=== PATIENT | male | born 1950 | race Caucasian/White ===

== ENCOUNTER 2024-02-08 14:42 | Inpatient (IN) ==
[2024-02-08] MEDS: 0.9 % SODIUM CHLORIDE 1,000 ML IV ONE (16:15)
[2024-02-08] MEDS: morphine 2 MG/ML VIAL IV ONE (16:40)
[2024-02-08] MEDS: CIPROFLOXACIN 400 MG/200 ML BAG IV ONE (16:41)
[2024-02-08 16:44] LABS: Basophils # (Auto) 0.04 K/mcL (0.00-0.30); Basophils % (Auto) 0.4 % (0.0-2.0); Eosinophils # (Auto) 0.06 K/mcL (0.00-0.70); Eosinophils % (Auto) 0.7 % (0.0-7.0); Hematocrit 36.8 % (40.1-51.0); Hemoglobin 11.9 g/dL (13.7-17.5); Lymphocytes # (Auto) 1.02 K/mcL (1.50-4.80); Lymphocytes % (Auto) 11.3 % (15.5-49.0); Mean Cell Volume 96.8 fL (80.0-100.0); Mean Corpuscular HGB Conc 32.3 g/dL (31.0-36.0); Mean Platelet Volume 10.9 fL (8.8-12.5); Monocytes # (Auto) 1.03 K/mcL (0.10-0.90); Monocytes % (Auto) 11.4 % (1.0-12.0); Neutrophils % (Auto) 76.1 % (38.0-78.0); Platelet Count 334 K/mcL (140-440); Red Cell Distribution Width 12.3 % (11.5-14.5); WBC 9.1 K/mcL (4.5-11.0)
[2024-02-08] MEDS: metroNIDAZOLE 500 MG/100 ML BAG IV ONE (17:11)
[2024-02-08 17:14] LABS: ALT/SGPT 111 U/L (<40); AST/SGOT 18 U/L (<40); Albumin 3.3 gm/dL (3.2-5.2); Alkaline Phosphatase 169 U/L (39-117); Bilirubin,Total 0.4 mg/dL (0.1-1.0); Blood Urea Nitrogen 12 mg/dL (8-23); Calcium 8.8 mg/dL (8.6-10.4); Carbon Dioxide 27 mmol/L (22-30); Chloride 99 mmol/L (96-108); Globulin 3.3 gm/dL (2.2-3.7); Glomerular Filtration Rate 94; Glucose 127 mg/dL (70-105)
[2024-02-08] MEDS ORDERED: IOPAMIDOL 100 ML BOTTLE IV ONE (19:46)
[2024-02-08] MEDS: PIPERACILLIN SODIUM/TAZOBACTAM 3.375 GM in 0.9 % SODIUM CHLORIDE 50 ML IV ONE (21:08)
[2024-02-08] MEDS: DEXTROSE 5%-LR 1,000 ML IV SCH (21:08)
[2024-02-08] MEDS: HYDROmorphone 0.5 MG/0.5 ML SYRINGE IV PRN (21:42)
[2024-02-08] MEDS: PIPERACILLIN SODIUM/TAZOBACTAM 3.375 GM in 0.9 % SODIUM CHLORIDE 100 ML IV SCH (22:14)
[2024-02-09] MEDS: PIPERACILLIN SODIUM/TAZOBACTAM 3.375 GM in 0.9 % SODIUM CHLORIDE 100 ML IV SCH (00:03)
[2024-02-09 00:43] LABS: Appearance,Urine Clear (Clear); Bilirubin,Urine Negative (Negative); Color,Urine Yellow; Culture Indicated,Urine No; Glucose,Urine (UA) Negative (Negative); Ketones,Urine Negative (Negative); Leukocyte Esterase,Urine Negative /uL (Negative); Nitrate,Urine Negative (Negative); Protein,Urine Negative (Negative); Specific Gravity,Urine 1.015 (1.000-1.035); Urine Blood Negative ery/mcL (Negative); Urobilinogen,Urine Normal
[2024-02-09 06:58] LABS: Hematocrit 40.5 % (40.1-51.0); Hemoglobin 11.9 g/dL (13.7-17.5); Mean Corpuscular HGB Conc 29.4 g/dL (31.0-36.0); Mean Platelet Volume 10.5 fL (8.8-12.5); Platelet Count 310 K/mcL (140-440); RBC 3.82 M/mcL (4.63-6.08); Red Cell Distribution Width 12.7 % (11.5-14.5); WBC 6.9 K/mcL (4.5-11.0)
[2024-02-09 07:09] LABS: ALT/SGPT 120 U/L (<40); AST/SGOT 59 U/L (<40); Alkaline Phosphatase 252 U/L (39-117); Bilirubin,Total 0.5 mg/dL (0.1-1.0); Blood Urea Nitrogen 8 mg/dL (8-23); Calcium 8.7 mg/dL (8.6-10.4); Carbon Dioxide 25 mmol/L (22-30); Chloride 104 mmol/L (96-108); Globulin 3.1 gm/dL (2.2-3.7); Glomerular Filtration Rate 89; Glucose 108 mg/dL (70-105)
[2024-02-09] MEDS: LEVOTHYROXINE 25 MCG TABLET PO SCH (09:08)
[2024-02-09] MEDS: OMEPRAZOLE 20 MG CAPSULE PO SCH (09:08)
[2024-02-09] MEDS: ONDANSETRON 4 MG/2 ML VIAL IV PRN (21:17)
[2024-02-10 06:29] LABS: Hematocrit 31.8 % (40.1-51.0); Hemoglobin 9.9 g/dL (13.7-17.5); Mean Cell Volume 100.3 fL (80.0-100.0); Mean Corpuscular HGB Conc 31.1 g/dL (31.0-36.0); Mean Platelet Volume 10.3 fL (8.8-12.5); Platelet Count 345 K/mcL (140-440); RBC 3.17 M/mcL (4.63-6.08); Red Cell Distribution Width 12.7 % (11.5-14.5); WBC 6.5 K/mcL (4.5-11.0)
[2024-02-10 06:56] LABS: ALT/SGPT 106 U/L (<40); AST/SGOT 55 U/L (<40); Albumin 2.9 gm/dL (3.2-5.2); Alkaline Phosphatase 243 U/L (39-117); Bilirubin,Total 0.5 mg/dL (0.1-1.0); Blood Urea Nitrogen 6 mg/dL (8-23); Calcium 8.8 mg/dL (8.6-10.4); Carbon Dioxide 27 mmol/L (22-30); Chloride 102 mmol/L (96-108); Globulin 2.9 gm/dL (2.2-3.7); Glomerular Filtration Rate 89; Glucose 118 mg/dL (70-105)
[2024-02-11 08:05] LABS: Hematocrit 33.2 % (40.1-51.0); Hemoglobin 10.5 g/dL (13.7-17.5); Mean Cell Volume 98.5 fL (80.0-100.0); Mean Corpuscular HGB Conc 31.6 g/dL (31.0-36.0); Mean Platelet Volume 10.2 fL (8.8-12.5); Platelet Count 393 K/mcL (140-440); RBC 3.37 M/mcL (4.63-6.08); Red Cell Distribution Width 12.2 % (11.5-14.5); WBC 6.4 K/mcL (4.5-11.0)
[2024-02-11 08:23] LABS: ALT/SGPT 84 U/L (<40); AST/SGOT 31 U/L (<40); Albumin/Globulin Ratio 1.1 (1.0-2.3); Alkaline Phosphatase 222 U/L (39-117); Bilirubin,Total 0.4 mg/dL (0.1-1.0); Blood Urea Nitrogen 6 mg/dL (8-23); Calcium 8.7 mg/dL (8.6-10.4); Carbon Dioxide 27 mmol/L (22-30); Chloride 101 mmol/L (96-108); Globulin 2.8 gm/dL (2.2-3.7); Glomerular Filtration Rate 89; Glucose 105 mg/dL (70-105)
[2024-02-12] MEDS: DEXTROSE 5%-LR 1,000 ML IV SCH (01:08)
[2024-02-12 06:30] LABS: Hematocrit 32.3 % (40.1-51.0); Hemoglobin 10.3 g/dL (13.7-17.5); Mean Cell Volume 97.3 fL (80.0-100.0); Mean Corpuscular HGB Conc 31.9 g/dL (31.0-36.0); Mean Platelet Volume 10.3 fL (8.8-12.5); Platelet Count 412 K/mcL (140-440); RBC 3.32 M/mcL (4.63-6.08); Red Cell Distribution Width 12.1 % (11.5-14.5); WBC 5.9 K/mcL (4.5-11.0)
[2024-02-12 06:57] LABS: ALT/SGPT 61 U/L (<40); AST/SGOT 19 U/L (<40); Albumin 2.9 gm/dL (3.2-5.2); Albumin/Globulin Ratio 1.1 (1.0-2.3); Alkaline Phosphatase 192 U/L (39-117); Bilirubin,Total 0.3 mg/dL (0.1-1.0); Blood Urea Nitrogen 4 mg/dL (8-23); Calcium 8.6 mg/dL (8.6-10.4); Carbon Dioxide 29 mmol/L (22-30); Chloride 103 mmol/L (96-108); Globulin 2.6 gm/dL (2.2-3.7); Glomerular Filtration Rate 85; Glucose 117 mg/dL (70-105)
[2024-02-12 08:50] LABS: Partial Thromboplastin Time 30.2 sec (20.0-37.0); Prothrombin Time 14.3 sec (11.9-14.5)
[2024-02-12] MEDS: fentaNYL 100 MCG/2 ML VIAL IV ONE (11:15)
[2024-02-12] MEDS: MIDAZOLAM 2 MG/2 ML VIAL IV ONE (11:15)
[2024-02-12] MEDS ORDERED: LIDOCAINE 1% 20 ML VIAL SQ ONE (11:57)
[2024-02-12] MEDS: HYDROcodone/APAP 5/325MG TABLET PO PRN (13:52)
[2024-02-12] MEDS: SULFAMETHOXAZOLE/TRIMETHOPRIM 1 TABLET PO SCH (21:05)
[2024-02-12] MEDS ORDERED: ACETAMINOPHEN 650 MG/65 ML BAG IV PRN (22:00)
[2024-02-13 06:38] LABS: Hematocrit 31.1 % (40.1-51.0); Hemoglobin 9.9 g/dL (13.7-17.5); Mean Cell Volume 97.5 fL (80.0-100.0); Mean Corpuscular HGB Conc 31.8 g/dL (31.0-36.0); Mean Platelet Volume 10.2 fL (8.8-12.5); Platelet Count 412 K/mcL (140-440); RBC 3.19 M/mcL (4.63-6.08); Red Cell Distribution Width 12.2 % (11.5-14.5); WBC 7.1 K/mcL (4.5-11.0)
[2024-02-13 07:10] LABS: ALT/SGPT 51 U/L (<40); AST/SGOT 22 U/L (<40); Albumin 2.8 gm/dL (3.2-5.2); Albumin/Globulin Ratio 1.2 (1.0-2.3); Alkaline Phosphatase 160 U/L (39-117); Bilirubin,Total 0.3 mg/dL (0.1-1.0); Blood Urea Nitrogen 6 mg/dL (8-23); Calcium 8.3 mg/dL (8.6-10.4); Carbon Dioxide 27 mmol/L (22-30); Chloride 103 mmol/L (96-108); Globulin 2.4 gm/dL (2.2-3.7); Glomerular Filtration Rate 85; Glucose 111 mg/dL (70-105)
[2024-02-13] MEDS: DEXTROSE 5%-LR 1,000 ML IV SCH (22:04)
[2024-02-14 06:23] LABS: Hematocrit 31.9 % (40.1-51.0); Hemoglobin 10.1 g/dL (13.7-17.5); Mean Cell Volume 97.9 fL (80.0-100.0); Mean Corpuscular HGB Conc 31.7 g/dL (31.0-36.0); Mean Platelet Volume 10.4 fL (8.8-12.5); Platelet Count 434 K/mcL (140-440); RBC 3.26 M/mcL (4.63-6.08); Red Cell Distribution Width 12.4 % (11.5-14.5); WBC 5.8 K/mcL (4.5-11.0)
[2024-02-14 06:55] LABS: ALT/SGPT 44 U/L (<40); AST/SGOT 21 U/L (<40); Albumin 2.8 gm/dL (3.2-5.2); Albumin/Globulin Ratio 1.2 (1.0-2.3); Alkaline Phosphatase 137 U/L (39-117); Bilirubin,Total 0.2 mg/dL (0.1-1.0); Blood Urea Nitrogen 6 mg/dL (8-23); Calcium 8.3 mg/dL (8.6-10.4); Carbon Dioxide 27 mmol/L (22-30); Chloride 105 mmol/L (96-108); Globulin 2.3 gm/dL (2.2-3.7); Glomerular Filtration Rate 85; Glucose 93 mg/dL (70-105)
== END 2024-02-14 15:40 | disposition home or self-care (01) | DRG 446 ==
LOC: ED 14:42 → MEDSUR 14:42
PROVIDERS: ADMIT Surgery Surgical Critical Care; ATTEND Surgery Surgical Critical Care